=== PATIENT | male | born 1975 | race Caucasian/White ===

== ENCOUNTER 2025-03-11 08:42 | Outpatient (CLI) | payer BC ==
--- NOTE | 2025-03-11 13:25 | RADIOLOGY REPORT ---
CLINICAL INDICATION: PAIN IN LEFT KNEE TECHNIQUE: Multiplanar, multisequence MRI of the left knee was performed without contrast. Contrast: None. COMPARISON: None FINDINGS: Joint space and synovium: There is small knee joint effusion. No popliteal fossa cyst. No synovitis. Bones and articular cartilage: There is no evidence of acute fracture or bone marrow edema. The alignment is normal. There is high-grade near full- thickness articular cartilage loss in the medial femoral condyle subchondral bone marrow edema. Diffuse chondral thinning is noted in the medial tibial plateau. There is partial-thickness chondral loss in the central aspect of the lateral tibial plateau. There are medial and lateral tibiofemoral compartment osteophytes. Focal chondral fissures noted in the patellar apex and trochlea. Menisci: There is a horizontal tear in the posterior horn and body of the medial meniscus. The lateral meniscus is intact. Tendons and ligaments: The tendons in the posterior knee are intact. The extensor mechanism is intact. The anterior cruciate ligament is intact. The posterior cruciate ligament is intact. The medial collateral ligament and the lateral collateral ligament stabilizing complex are intact. Muscles: Regional muscles are preserved in bulk and signal characteristics. Other: None. IMPRESSION: 1. Horizontal tear in the posterior horn and body of the medial meniscus. 2. 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 3. Small knee joint effusion. HS:Y
== END 2025-03-11 23:59 | disposition home or self-care (01) ==
LOC: MRI02 08:42
PROVIDERS: ATTEND Family Medicine Sports Medicine
DX: S83.242A Other tear of medial meniscus, current injury, left knee, initial encounter (principal); M25.562 Pain in left knee; M17.12 Unilateral primary osteoarthritis, left knee; M77.9 Enthesopathy, unspecified; M25.462 Effusion, left knee; M21.162 Varus deformity, not elsewhere classified, left knee; X58.XXXA Exposure to other specified factors, initial encounter; Y93.89 Activity, other specified; Y92.89 Other specified places as the place of occurrence of the external cause; Y99.8 Other external cause status
CPT/HCPCS: 73721